=== PATIENT | female | born 1990 | race Caucasian/White ===

== ENCOUNTER 2021-08-23 09:50 | Emergency (ER) | payer OTHER, SELFPAY ==
[2021-08-23 10:06] VITALS: BP 122/73; PULSE 100; RESP 18; TEMP 36.8; O2SAT 96; BMI 25.0
[2021-08-23 10:41] LABS: Appearance Urine HAZY; Color Urine YELLOW; Glucose Urine UA NEG (NEG); Leukocyte Esterase Urine NEG (NEG); Nitrite Urine NEG (NEG); Specific Gravity - Urine 1.025 (1.005-1.025); Urine Blood NEG (NEG); Urine Ketones NEG (NEG); Urine Protein NEG (NEG-TRACE)
--- NOTE | 2021-08-23 11:06 | ED.FEMALEGU ---
HPI - Female Genitourinary General Chief complaint: Urogenital-Female Stated complaint: QUEST UTI Time Seen by Provider: 08/23/21 10:28 Source: patient Mode of arrival: ambulatory Limitations: no limitations History of Present Illness HPI Narrative: 30-year-old female is here today for complaints of vaginal discharge and odor. Patient reports that she had unprotected sex with her monogamous partner 1 week ago and her symptoms began 4 days ago. Patient denies any urinary frequency, urgency or burning. Denies any hematuria. Reports that the discharge is white and she reports of foul odor. Patient denies any pelvic pain. Denies any other symptoms. Denies any nausea or vomiting. Patient reports that she has IUD in place. MD elicited complaint: vaginal discharge and possible STD Related Data Previous Rx's Medication Instructions Recorded doxycycline hyclate 100 mg tablet 100 mg PO BID #14 tab 08/23/21 metronidazole 500 mg tablet 500 mg PO BID #14 tab 08/23/21 (Flagyl) Allergies Allergy/AdvReac Type Severity Reaction Status Date / Time No Known Allergies Allergy Verified 08/23/21 10:09 [No Known Allergies*] animals Allergy Unknown Unknown Uncoded 08/23/21 10:09 dust Allergy Unknown Unknown Uncoded 08/23/21 10:09 mold Allergy Unknown Unknown Uncoded 08/23/21 10:09 pollen Allergy Unknown Unknown Uncoded 08/23/21 10:09 Review of Systems Review of Systems: Constitutional : No Weight loss, No Fever, No Chills, No Night Sweats, No Fatigue, No Malaise ENT/Mouth : No Hearing loss, No Ear Pain, No Nasal Congestion, No Sinus Pain, No Hoarseness, No sore throat, No Rhinorrhea, No Swallowing Difficulty Eyes: No Eye Pain, No Swelling, No Redness, No Foreign Body, No Discharge, No Vision Changes Cardiovascular : No Chest Pain, No SOB, No Dyspnea on Exertion, No Orthopnea, No Edema, No Palpitations Respiratory : No Cough, No Sputum, No Wheezing, No Smoke Exposure, No Dyspnea Gastrointestinal : No Nausea, No Vomiting, No Diarrhea, No Constipation, No abdominal Pain, No Hematochezia, No Melena Genitourinary : no irregular bleeding, No Dysuria, No Urinary Frequency, No Hematuria, No Urinary Incontinence, No Urgency, No Flank Pain, No Urinary Flow Changes, No Hesitancy, vaginal odor Musculoskeletal : No joint pain, No Myalgias, No Joint Swelling Skin : No Skin Lesions, No rash Neuro : No Weakness, No Numbness, No Paresthesias, No Loss of Consciousness, No Dizziness, No Headache Yes all other systems are reviewed and are negative PMFSH Past Medical History Medical History (Updated 08/23/21 @ 12:14 by Marilin Saenz [facility]) No known health problems Social History Social History Advance Directives: No Advance Directives Information Provided: No Patient : No Physical Exam Vital Signs: Vital Signs: Last Vital Signs Temp 98.3 F 08/23/21 10:06 Pulse 100 08/23/21 10:06 Resp 18 08/23/21 10:06 BP 122/73 08/23/21 10:06 Pulse Ox 96 08/23/21 10:06 Body Mass Index 25.0 Const: General: healthy appearing, no acute distress and well developed Nutritional Appearance: well nourished Orientation/consciousness: patient oriented x3 HENMT: Head: Yes normal to inspection, Yes normocephalic and Yes atraumatic Neck: Neck: Yes normal visual inspection, Yes full ROM and Yes trachea midline Thyroid: Thyroid normal Resp: Effort & Inspection: normal respiratory effort Auscultation: clear to auscultation bilaterally Cardio: Rate: regular rate Rhythm: regular rhythm Heart sounds: S1 normal heart sound present and S2 normal heart sound present GI: Inspection: Yes normal to inspection and No distended Palpation (GI): No hepatosplenomegaly present Auscultation: normal bowel sounds : Other: No tenderness to pelvic region, patient refused vaginal exam General: Yes Bimanual renal exam normal bilaterally, Yes bladder normal to palpation and Yes no CVA tenderness External Female Exam: normal external appearance and other (Patient refused vaginal exam) Bimanual exam- vagina & uterus: bladder normal to palpation Back/Spine/Pelvis: Back: no CVA tenderness Skin: General skin exam: elasticity normal, turgor normal and dry skin Neuro: General: patient oriented x3 Psych: Appearance: grossly normal and well kempt Mental Status: mental status grossly normal Course Course Course Narrative: 30-year-old female is here today after having unprotected sex 1 week ago with her monogamous partner. She reports that symptoms started 4 days ago. Started having vaginal discharge white with foul odor. Patient denies any pain, no urinary frequency, burning, pain. Patient refused vaginal exam, however agreed to swab. Swab for Trichomonas, yeast, BV, gonorrhea and chlamydia. Will do urinalysis, test Reevaluation(s) Reevaluation #1: test negative will medicate patient for gonorrhea and chlamydia. Awaiting Trichomonas and yeast results Reevaluation #2: Trichomonas and yeast negative. Patient reports that she has history of BV in the past. I will treat her now with Flagyl. She will be sent home with Flagyl and doxycycline twice a day for 7 days. Patient was instructed to abstain from alcohol while she is taking Flagyl. She is aware that she will receive a phone call from us with results. She was instructed to return if her symptoms will get worse or if she experience any additional concerning symptoms. MDM - Female Genitourinary Lab Data Labs: Lab Results 08/23/21 08/23/21 Range/Units 10:31 10:31 Urine Color YELLOW Urine Appearance HAZY Urine pH 7.0 (5.0-8.0) Ur Specific [place] 1.025 (1.005-1.025) Urine Protein NEG (NEG-TRACE) MG/DL Urine Glucose (UA) NEG (NEG) MG/DL Urine Ketones NEG (NEG) MG/DL Urine Blood NEG (NEG) Urine Nitrite NEG (NEG) Ur Leukocyte Esterase NEG (NEG) Urine Test NEGATIVE (NEGATIVE) Discharge Plan Discharge Clinical Impression: Bacterial vaginosis, Vaginal discharge Patient Disposition: Home, Self-Care Instructions: Vaginal Discharge (ED) Additional Instructions: You were seen here today for complaining of vaginal discharge and pelvic discomfort. We tested to for yeast and Trichomonas which was negative. You received treatment for gonorrhea and chlamydia. You also will be receiving treatment for suspected bacterial vaginosis. Someone will call you in 48-72 hours if you test positive. Please follow-up with [facility] or [facility] at [address] [place] [address]. Phone number [phone]. Please follow-up with your primary care doctor in 2-3 days. You may return to emergency department if your symptoms will get worse or if you experience any additional concerning symptoms. Please finish all your antibiotics unless you are told otherwise by one of our providers Prescriptions: New doxycycline hyclate 100 mg tablet 100 mg PO BID Qty: 14 RF: 0 metronidazole [Flagyl] 500 mg tablet 500 mg PO BID Qty: 14 RF: 0 Interventions: ED Discharge Assessment Last Done: 08/23/21 12:34 Discharge Date/Time: 08/23/21 12:35
[2021-08-23 11:09] LABS: UPreg QC Valid YES; Urine Pregnancy NEGATIVE (NEGATIVE)
[2021-08-23] MEDS: Ondansetron ODT 4 MG TAB.RAPDIS TRANSLINGU (11:18)
[2021-08-23] MEDS: cefTRIAXone sodium 500 MG, Lidocaine HCl 1 % MPF 1 ML IM (11:30)
[2021-08-23] MEDS: metroNIDAZOLE 500 MG TABLET PO (12:12)
[2021-08-23 15:17] LABS: CT PCR NOT DETECTED (Not Detect.); NG PCR NOT DETECTED (Not Detect.)
[2021-08-25 09:53] LABS: BV Int Neg Control Negative (Negative); BV Int Pos Control Positive (Positive)
== END 2021-08-23 12:35 | disposition home or self-care (01) ==
PROVIDERS: Nurse Practitioner Family; Emergency Provider Emergency Medicine
DX: N76.0 Acute vaginitis (principal); Z79.899 Other long term (current) drug therapy; Z20.2 Contact with and (suspected) exposure to infections with a predominantly sexual mode of transmission
CPT/HCPCS: 36415; 81003; 81025; 87480; 87491; 87510; 87591; 87660; 96372; 99282; 99284; J0696

== ENCOUNTER 2021-10-01 13:30 | Emergency (ER) | payer OTHER, SELFPAY ==
--- NOTE | ~2021-10-01 | US_ITS ---
EXAMINATION: US PELVIS CLINICAL INFORMATION: 30-year-old female with history of vaginal bleeding for 3 weeks. COMPARISON: None TECHNIQUE: Ultrasound of the pelvis is performed using both transabdominal and transvaginal transducers. Transvaginal imaging is performed due to inadequate visualization transabdominally. FINDINGS: UTERUS: The anteflexed, anteverted uterus measures 7 x 3.9 x 5.3 cm (cervix to fundus x AP x transverse dimensions). The myometrial echotexture is normal. No evidence of leiomyoma. The endometrium, which has normal homogeneous echotexture, is 0.4 cm AP. No endometrial fluid or polyp. The echogenic contraceptive device is low in position, extending into the endocervical canal. ADNEXA: The ovaries have normal size and echotexture. No ovarian mass. The right ovary measures approximately 2 x 1.1 x 1.4 cm and left ovary 3.3 x 1.5 x 1.1 cm. Color Doppler images show presence of arterial and venous flow within each ovary. FREE FLUID: No pelvic free fluid. US/US pelvic and transvaginal IMPRESSION: * The contraceptive device is abnormally low in position, extending into the endocervical canal. * No evidence of uterine mass. The endometrium is normal. * The ovaries are normal.
[2021-10-01 13:41] VITALS: BP 130/64; PULSE 105; RESP 16; TEMP 36.7; O2SAT 96; BMI 25.7
[2021-10-01 14:47] LABS: Appearance Urine HAZY; Color Urine YELLOW; Glucose Urine UA NEG (NEG); Leukocyte Esterase Urine NEG (NEG); Nitrite Urine NEG (NEG); PH 5.5 (5.0-8.0); Specific Gravity - Urine >= 1.030 (1.005-1.025); UACC Culture Trigger NO; Urine Blood 3+ (NEG); Urine Ketones NEG (NEG); Urine Protein NEG (NEG-TRACE)
--- NOTE | 2021-10-01 14:47 | ED_ITS ---
HPI - Female Genitourinary General Chief complaint: Urogenital-Female Stated complaint: Vaginal pain/bleeding c section scar rash Time Seen by Provider: 10/01/21 14:22 Source: patient Mode of arrival: ambulatory Limitations: no limitations History of Present Illness HPI Narrative: 30-year-old female came in for evaluation for multiple symptoms. Patient was seen in the emergency department about 5 weeks ago for vaginal odor, patient tested positive for BV, patient claimed that she did not receive treatment for him, patient is here today for increase water, increase vaginal spotting for the past 3 weeks, patient had IUD year ago and concern about miss placement of the IUD. Patient also here today to check on the incision in her lower abdomen that is been red and having mild discharge. Related Data Previous Rx's Medication Instructions Recorded doxycycline hyclate 100 mg tablet 100 mg PO BID #14 tab 08/23/21 metronidazole 500 mg tablet 500 mg PO BID #14 tab 08/23/21 (Flagyl) metronidazole 500 mg tablet 500 mg PO BID #14 tab 10/01/21 nystatin 100,000 unit/gram topical 1 appl TOPICAL TID #30 g 10/01/21 powder Allergies Allergy/AdvReac Type Severity Reaction Status Date / Time No Known Allergies Allergy Verified 08/23/21 10:09 [No Known Allergies*] animals Allergy Unknown Unknown Uncoded 08/23/21 10:09 dust Allergy Unknown Unknown Uncoded 08/23/21 10:09 mold Allergy Unknown Unknown Uncoded 08/23/21 10:09 pollen Allergy Unknown Unknown Uncoded 08/23/21 10:09 Review of Systems Review of Systems: All other systems are reviewed and are negative Constitutional: Reports as per HPI and Reports no additional constitutional complaints Eyes: Reports as per HPI and Reports no additional eye complaints Reports system reviewed and no additional complaints, except as documented Cardiovascular: Reports as per HPI and Reports no additional cardiovascular complaints Respiratory: Reports as per HPI and Reports no additional respiratory complaints Gastrointestinal: Reports as per HPI and Reports no additional gastrointestinal complaints Genitourinary: Reports no additional female genitourinary complaints Musculoskeletal: Reports no additional musculoskeletal complaints Skin/Breast: Reports system reviewed and no additional complaints, except as docu Psychiatric: Reports no additional psychiatric complaints Endocrine: Reports no additional endocrine complaints Hematologic/Lymphatic: Reports no additional hematologic/lymphatic complaints Allergic/Immunologic: Reports no additional allergic/immunologic complaints Reports system reviewed and no additional complaints, except as documented and Reports Abnormal speech present [facility] Past Medical History Medical History No known health problems Social History Social History Advance Directives: No Advance Directives Information Provided: No Patient : No Physical Exam Vital Signs: Vital Signs: Last Vital Signs Temp 98.0 F 10/01/21 13:41 Pulse 105 H 10/01/21 13:41 Resp 16 10/01/21 13:41 BP 130/64 10/01/21 13:41 Pulse Ox 96 10/01/21 13:41 Body Mass Index 25.7 Vital signs have been reviewed as appeared to be correct. Blood pressure normal. Heart rate normal. Respiration rate normal. Temperature normal. Oxygen saturation normal. Appearance: Alert. Oriented X3. No acute distress. Head: Normal external exam. Normocephalic. Atraumatic. No Bryant signs noted. No raccoon eyes noted Eyes: PERRLA. EOMI. Conjunctiva and sclera normal. Eyelids normal. ENT: TM's Normal. Pharynx normal. Uvula midline. Moist mucous membranes. No trismus noted. No drooling noted. No muffled voice noted. Neck: Normal inspection. Neck supple. FROM. No adenopathy. Thyroid Normal. No meningeal signs. No neck mass noted. CVS: Normal heart rate and rhythm. Heart sound normal. No murmurs noted. Pulses normal throughout. Respiratory: No respiratory distress. Painless inspiration. Breath sounds normal. No wheezes/rales/rhonchi noted. Chest nontender. No accessory muscle u ruddy noted or decreased air movement noted. Abdomen: Soft and nontender. Bowel sounds normal in all 4 quadrants. No distention noted. No organomegaly noted. No visible injury noted. incision in the lower abdomen with beefy red, moist service with satellite lesion outside advancing border. Pelvic exam: Deferred for ultrasound. Back: No CVA tenderness. Full range of motion noted. Skin: Skin warm and dry. Normal skin color. Normal skin turgor. No rashes/lesions/lacerations noted. Extremities: No lower extremity edema. Extremities exhibit normal range of motion. Extremities nontender. Neuro: Oriented X 3. Cranial nerve exam: II-XII are grossly intact No motor deficit. No sensory deficit. Reflexes normal. Course Course Course Narrative: Assessment and plan. 30-year-old female came in for evaluation of vaginal odor, patient had a history of bacterial vaginosis, patient declined any risk for STDs recently patient tested negative for STDs. Start the patient on Flagyl time 1 week. Old scar with fungal infection will start the patient on meconazole. As reported on the ultrasound report that the IUD is in the cervix and it is lower than it should be, patient was offered to remove it but patient preferred to see OBGYN. MDM - Female Genitourinary Lab Data Attestation: I reviewed the patient's lab results. Labs: Lab Results 10/01/21 10/01/21 Range/Units 14:38 14:38 Urine Color YELLOW Urine Appearance HAZY Urine pH 5.5 (5.0-8.0) Ur Specific [place] >= 1.030 H (1.005-1.025) Urine Protein NEG (NEG-TRACE) MG/DL Urine Glucose (UA) NEG (NEG) MG/DL Urine Ketones NEG (NEG) MG/DL Urine Blood 3+ H (NEG) Urine Nitrite NEG (NEG) Ur Leukocyte Esterase NEG (NEG) Urine RBC 5-9 H (0) /HPF Urine WBC 0 (0-4) /HPF Ur Squamous Epith Cells 2+ /LPF Urine Bacteria TRACE /LPF Urine Test NEGATIVE (NEGATIVE) Imaging Data Pelvic ultrasound: Radiologist's impression: ? The contraceptive device is abnormally low in position, extending into the endocervical canal. *? No evidence of uterine mass. The endometrium is normal. *? The ovaries are normal. Discharge Plan Discharge Clinical Impression: Bacterial vaginosis, Marii infection of flexural skin, IUD complication Patient Disposition: Home, Self-Care Instructions: Bacterial Vaginosis (ED), Skin Yeast Infection (ED) Prescriptions: New metronidazole 500 mg tablet 500 mg PO BID Qty: 14 RF: 0 nystatin 100,000 unit/gram powder 1 appl topical TID Qty: 30 RF: 0 No Action doxycycline hyclate 100 mg tablet 100 mg PO BID Qty: 14 RF: 0 metronidazole [Flagyl] 500 mg tablet 500 mg PO BID Qty: 14 RF: 0 Referrals: Jack Schultz MD [Physician] - 2 days
[2021-10-01 14:49] LABS: UPreg QC Valid YES; Urine Pregnancy NEGATIVE (NEGATIVE)
[2021-10-01 14:55] LABS: Bacteria Urine TRACE /LPF; Squamous Epithelial Cell Urine 2+ /LPF; WBC Urine 0 /HPF (0-4)
== END 2021-10-01 16:25 | disposition home or self-care (01) ==
PROVIDERS: Emergency Provider Emergency Medicine
DX: B37.2 Candidiasis of skin and nail (principal); N76.0 Acute vaginitis; T83.89XA Other specified complication of genitourinary prosthetic devices, implants and grafts, initial encounter
CPT/HCPCS: 76830; 76856; 81001; 81025; 99284

== ENCOUNTER 2022-06-15 13:08 | Emergency (ER) | payer OTHER, SELFPAY ==
--- NOTE | ~2022-06-15 | US_ITS ---
EXAMINATION: ULTRASOUND CLINICAL INFORMATION: 6 weeks with vaginal bleeding COMPARISON: None TECHNIQUE: Transabdominal ultrasound was performed. FINDINGS: A gestational sac is present within the uterus with a yolk sac and pole seen. A normal heartbeat of 142 bpm was noted. The crown-rump length was 1.02 cm which would correspond to a gestational age of 7 weeks 1 day with an KAYLA of 01/31/2023. Based upon the patient's LMP of 04/26/2022, this is identical. The right ovary measures 2.7 x 1.8 x 2.2 cm which includes a corpus luteum 1.1 x 1.2 x 1.6 cm cyst. Left ovary measures 2.1 x 1.5 x 2.0 cm and appears normal. No free fluid is present in the cul-de-sac. US/US OB limited IMPRESSION: Single live uterine mean gestational age best estimated at 7 weeks 1 day with an KAYLA of 01/31/2023
[2022-06-15 13:20] VITALS: BP 126/70; PULSE 104; RESP 18; TEMP 36.7; O2SAT 100; BMI 27.4
[2022-06-15 13:43] LABS: MANUAL DIFF FLAG NO
[2022-06-15 13:45] LABS: Basophils Percent Auto 0.1 % (0-2); Eosinophils Absolute Auto 0.3 X10*3/uL (0.0-0.4); Eosinophils Percent Auto 2.6 % (0-4); Hematocrit 39.7 % (37.0-47.0); Hemoglobin 13.8 g/dl (12.0-16.0); Imm Gran Abs Auto 0.05 X10*3/uL (0.00-0.03); Imm Gran Pct Auto 0.5 % (0.0-0.4); Lymphocytes Absolute Auto 1.7 X10*3/uL (1.2-4.9); Lymphocytes Percent Auto 16.6 % (20-40); Mean Corpuscular HGB Conc 34.8 g/dl (31.0-35.0); Mean Corpuscular Hemoglobin 30.9 pg (27.0-33.0); Mean Platelet Volume 11.5 fL (9.4-12.3); Monocytes Absolute Auto 0.8 X10*3/uL (0.1-1.2); Monocytes Percent Auto 7.7 % (2-11); Neutrophils Absolute Auto 7.2 x10*3/uL (2.0-8.3); Neutrophils Percent Auto 72.5 % (45-73); Platelet Count 214 X10*3/uL (160-400); Red Blood Count 4.46 X10*6/uL (4.20-5.50); Red Cell Distribution Width 12.2 % (11.0-16.0)
[2022-06-15 13:58] LABS: UPreg QC Valid YES; Urine Pregnancy POSITIVE (NEGATIVE)
[2022-06-15 13:59] LABS: Appearance Urine CLOUDY; Color Urine YELLOW; Glucose Urine UA NEG (NEG); Leukocyte Esterase Urine NEG (NEG); Nitrite Urine NEG (NEG); PH 8.5 (5.0-8.0); UACC Culture Trigger NO; Urine Blood 3+ (NEG); Urine Ketones NEG (NEG); Urine Protein NEG (NEG-TRACE)
[2022-06-15 14:02] LABS: Alanine Aminotransferase 12 U/L (0-31); Albumin Level 4.4 g/dL (3.5-5.0); Alkaline Phosphatase 47 U/L (39-117); Anion Gap 10 (12-20); Aspartate Amino Transferase 13 U/L (5-31); Bilirubin Total 0.5 mg/dL (0.0-1.0); Blood Urea Nitrogen 6 mg/dL (9-16); Calcium 8.8 mg/dL (8.4-10.2); Carbon Dioxide 23 mmol/L (22-29); Chloride 108 mmol/L (96-108); Estimated Glomerular Filt Rate > 60; Glucose Random 95 mg/dL (60-115); Potassium 3.9 mmol/L (3.3-5.1); Sodium 137 mmol/L (135-145); Total Protein 6.7 g/dL (6.5-8.0)
[2022-06-15 14:10] LABS: Amorphous Sediment Urine 4+ /LPF; Squamous Epithelial Cell Urine TRACE /LPF
[2022-06-15 14:11] LABS: WBC Urine 0 /HPF (0-4)
[2022-06-15 14:12] LABS: Bacteria Urine TRACE /LPF
--- NOTE | 2022-06-15 17:04 | ED.GENADULT ---
HPI - General Adult General Chief complaint: Vaginal Bleeding Stated complaint: / Vaginal bleeding Time Seen by Provider: 06/15/22 16:50 Source: patient Mode of arrival: ambulatory Limitations: no limitations History of Present Illness HPI narrative: 31-year-old female LMP is about 6-8 weeks ago patient noticed to have vaginal bleeding while she was at work, no abdominal pain or uterine contractions. No nausea, no vomiting, no diarrhea, no abdominal trauma. No chest pain or shortness of breath or feeling dizziness. Related Data Previous Rx's Medication Instructions Recorded doxycycline hyclate 100 mg tablet 100 mg PO BID #14 tabs 08/23/21 metronidazole 500 mg tablet 500 mg PO BID #14 tabs 08/23/21 (Flagyl) metronidazole 500 mg tablet 500 mg PO BID #14 tabs 10/01/21 nystatin 100,000 unit/gram topical 1 appl topical TID #30 grams 10/01/21 powder Allergies Allergy/AdvReac Type Severity Reaction Status Date / Time No Known Allergies Allergy Verified 08/23/21 10:09 [No Known Allergies*] animals Allergy Unknown Unknown Uncoded 08/23/21 10:09 dust Allergy Unknown Unknown Uncoded 08/23/21 10:09 mold Allergy Unknown Unknown Uncoded 08/23/21 10:09 pollen Allergy Unknown Unknown Uncoded 08/23/21 10:09 Review of Systems Review of Systems: All other systems are reviewed and are negative Constitutional: Reports as per HPI and Reports no additional constitutional complaints Eyes: Reports as per HPI and Reports no additional eye complaints Reports system reviewed and no additional complaints, except as documented Cardiovascular: Reports as per HPI and Reports no additional cardiovascular complaints Respiratory: Reports as per HPI and Reports no additional respiratory complaints Gastrointestinal: Reports as per HPI and Reports no additional gastrointestinal complaints Genitourinary: Reports no additional female genitourinary complaints Musculoskeletal: Reports no additional musculoskeletal complaints Skin/Breast: Reports system reviewed and no additional complaints, except as docu Psychiatric: Reports no additional psychiatric complaints Endocrine: Reports no additional endocrine complaints Hematologic/Lymphatic: Reports no additional hematologic/lymphatic complaints Allergic/Immunologic: Reports no additional allergic/immunologic complaints Reports system reviewed and no additional complaints, except as documented and Reports Abnormal speech present PMFSH Past Medical History Medical History No known health problems Social History Social History Advance Directives: No Advance Directives Information Provided: No Physical Exam ED Vital Signs: Vital Signs - 24 hr 06/15/22 13:20 Temperature 98.1 F Pulse Rate 104 H Respiratory Rate 18 Blood Pressure 126/70 Pulse Oximetry 100 Oxygen Delivery Method Room Air BMI result Body Mass Index 27.4 Vital signs have been reviewed as appeared to be correct. Blood pressure normal. Heart rate normal. Respiration rate normal. Temperature normal. Oxygen saturation normal. Appearance: Alert. Oriented X3. No acute distress. Head: Normal external exam. Normocephalic. Atraumatic. No Bryant signs noted. No raccoon eyes noted Eyes: PERRLA. EOMI. Conjunctiva and sclera normal. Eyelids normal. ENT: TM's Normal. Pharynx normal. Uvula midline. Moist mucous membranes. No trismus noted. No drooling noted. No muffled voice noted. Neck: Normal inspection. Neck supple. FROM. No adenopathy. Thyroid Normal. No meningeal signs. No neck mass noted. CVS: Normal heart rate and rhythm. Heart sound normal. No murmurs noted. Pulses normal throughout. Respiratory: No respiratory distress. Painless inspiration. Breath sounds normal. No wheezes/rales/rhonchi noted. Chest nontender. No accessory muscle usage noted or decreased air movement noted. Abdomen: Soft and nontender. Bowel sounds normal in all 4 quadrants. No distention noted. No organomegaly noted. No visible injury noted. Pelvic exam: Normal inspection, also is closed, no blood in the vault. Back: No CVA tenderness. Full range of motion noted. Skin: Skin warm and dry. Normal skin color. Normal skin turgor. No rashes/lesions/lacerations noted. Extremities: No lower extremity edema. Extremities exhibit normal range of motion. Extremities nontender. Neuro: Oriented X 3. Cranial nerve exam: II-XII are grossly intact No motor deficit. No sensory deficit. Reflexes normal. Course Course Course Narrative: Assessment and plan. 7 weeks came in with vaginal spotting with no active bleeding. Ultrasound showed 1 IUP will discharge with bedrest and avoid heavy lifting. Medical Decision Making Lab Data Lab results reviewed: Yes I reviewed the patient's lab results. Result diagrams: 06/15/22 13:33 06/15/22 13:33 Labs: Lab Results 06/15/22 06/15/22 06/15/22 Range/Units 13:33 13:33 13:33 WBC 10.0 (4.8-10.8) X10*3/uL RBC 4.46 (4.20-5.50) X10*6/uL Hgb 13.8 (12.0-16.0) g/dl Hct 39.7 (37.0-47.0) % MCV 89.0 (80.0-98.0) fL MCH 30.9 (27.0-33.0) pg MCHC 34.8 (31.0-35.0) g/dl RDW 12.2 (11.0-16.0) % Plt Count 214 (160-400) X10*3/uL MPV 11.5 (9.4-12.3) fL Immature Gran % (Auto) 0.5 H (0.0-0.4) % Neut % (Auto) 72.5 (45-73) % Lymph % (Auto) 16.6 L (20-40) % [place] % (Auto) 7.7 (2-11) % Eos % (Auto) 2.6 (0-4) % Baso % (Auto) 0.1 (0-2) % Lymph # (Auto) 1.7 (1.2-4.9) X10*3/uL [place] # (Auto) 0.8 (0.1-1.2) X10*3/uL Eos # (Auto) 0.3 (0.0-0.4) X10*3/uL Baso # (Auto) 0.0 (0.0-0.2) X10*3/uL Abs Immat Gran (auto) 0.05 H (0.00-0.03) X10*3/uL Absolute Neuts (auto) 7.2 (2.0-8.3) x10*3/uL Absolute Nucleated RBC 0.000 (0.0-0.012) X10*3/uL Nucleated RBC % (auto) 0.0 (0.0-0.2) /100WBC Sodium 137 (135-145) mmol/L Potassium 3.9 (3.3-5.1) mmol/L Chloride 108 (96-108) mmol/L Carbon Dioxide 23 (22-29) mmol/L Anion Gap 10 L (12-20) BUN 6 L (9-16) mg/dL Creatinine 0.67 (0.5-1.4) mg/dL Estim Creat Clear Calc 121.0 Estimated GFR > 60 Random Glucose 95 (60-115) mg/dL Calcium 8.8 (8.4-10.2) mg/dL Total Bilirubin 0.5 (0.0-1.0) mg/dL AST 13 (5-31) U/L ALT 12 (0-31) U/L Alkaline Phosphatase 47 (39-117) U/L Total Protein 6.7 (6.5-8.0) g/dL Albumin 4.4 (3.5-5.0) g/dL Beta HCG, Quant 117888 mIU/mL Urine Color Urine Appearance Urine pH (5.0-8.0) Ur Specific [place] (1.005-1.025) Urine Protein (NEG-TRACE) MG/DL Urine Glucose (UA) (NEG) MG/DL Urine Ketones (NEG) MG/DL Urine Blood (NEG) Urine Nitrite (NEG) Ur Leukocyte Esterase (NEG) Urine RBC (0) /HPF Urine WBC (0-4) /HPF Ur Squamous Epith Cells /LPF Amorphous Sediment /LPF Urine Bacteria /LPF Urine Test (NEGATIVE) Blood Type A Positive 06/15/22 06/15/22 Range/Units 13:33 13:33 WBC (4.8-10.8) X10*3/uL RBC (4.20-5.50) X10*6/uL Hgb (12.0-16.0) g/dl Hct (37.0-47.0) % MCV (80.0-98.0) fL MCH (27.0-33.0) pg MCHC (31.0-35.0) g/dl RDW (11.0-16.0) % Plt Count (160-400) X10*3/uL MPV (9.4-12.3) fL Immature Gran % (Auto) (0.0-0.4) % Neut % (Auto) (45-73) % Lymph % (Auto) (20-40) % [place] % (Auto) (2-11) % Eos % (Auto) (0-4) % Baso % (Auto) (0-2) % Lymph # (Auto) (1.2-4.9) X10*3/uL [place] # (Auto) (0.1-1.2) X10*3/uL Eos # (Auto) (0.0-0.4) X10*3/uL Baso # (Auto) (0.0-0.2) X10*3/uL Abs Immat Gran (auto) (0.00-0.03) X10*3/uL Absolute Neuts (auto) (2.0-8.3) x10*3/uL Absolute Nucleated RBC (0.0-0.012) X10*3/uL Nucleated RBC % (auto) (0.0-0.2) /100WBC Sodium (135-145) mmol/L Potassium (3.3-5.1) mmol/L Chloride (96-108) mmol/L Carbon Dioxide (22-29) mmol/L Anion Gap (12-20) BUN (9-16) mg/dL Creatinine (0.5-1.4) mg/dL Estim Creat Clear Calc Estimated GFR Random Glucose (60-115) mg/dL Calcium (8.4-10.2) mg/dL Total Bilirubin (0.0-1.0) mg/dL AST (5-31) U/L ALT (0-31) U/L Alkaline Phosphatase (39-117) U/L Total Protein (6.5-8.0) g/dL Albumin (3.5-5.0) g/dL Beta HCG, Quant mIU/mL Urine Color YELLOW Urine Appearance CLOUDY Urine pH 8.5 H (5.0-8.0) Ur Specific [place] 1.020 (1.005-1.025) Urine Protein NEG (NEG-TRACE) MG/DL Urine Glucose (UA) NEG (NEG) MG/DL Urine Ketones NEG (NEG) MG/DL Urine Blood 3+ H (NEG) Urine Nitrite NEG (NEG) Ur Leukocyte Esterase NEG (NEG) Urine RBC 10-14 H (0) /HPF Urine WBC 0 (0-4) /HPF Ur Squamous Epith Cells TRACE /LPF Amorphous Sediment 4+ /LPF Urine Bacteria TRACE /LPF Urine Test POSITIVE H (NEGATIVE) Blood Type Imaging Data Pelvic ultrasound: Attestation: I personally reviewed and interpreted this imaging study as follows: Radiologist's impression: Single live uterine mean gestational age best estimated at 7 weeks 1 day with an KAYLA of 01/31/2023? Discharge Plan Discharge Clinical Impression: Threatened Patient Disposition: Home, Self-Care Instructions: Threatened Miscarriage (ED) Additional Instructions: No heavy lifting, no pushing, no prolonged standing, needs bed rest, no sexual intercourse. Return to the ED if heavy bleeding or abdominal pain. Prescriptions: No Action doxycycline hyclate 100 mg tablet 100 mg PO BID Qty: 14 0RF metronidazole [Flagyl] 500 mg tablet 500 mg PO BID Qty: 14 0RF metronidazole 500 mg tablet 500 mg PO BID Qty: 14 0RF nystatin 100,000 unit/gram powder 1 appl topical TID Qty: 30 0RF Referrals: Physician,None [Primary Care Provider] - Stand Alone Forms: Work/School Release
== END 2022-06-15 19:14 | disposition home or self-care (01) ==
PROVIDERS: Emergency Provider Emergency Medicine
DX: O20.9 Hemorrhage in early pregnancy, unspecified (principal); Z3A.08 8 weeks gestation of pregnancy; Z79.899 Other long term (current) drug therapy
CPT/HCPCS: 36415; 76815; 80053; 81001; 81003; 81025; 84702; 85025; 86900; 86901; 99282; 99284

== ENCOUNTER 2022-08-26 13:20 | Emergency (ER) | payer OTHER, SELFPAY ==
[2022-08-26 14:30] VITALS: BP 113/87; PULSE 95; RESP 16; TEMP 36.6; O2SAT 95; BMI 27.4
[2022-08-26 15:22] LABS: Influenza A PCR NEGATIVE (Negative); Influenza B PCR NEGATIVE (Negative); Resp Syncy Virus RNA Qual PCR NEGATIVE (Negative); SARS COV2 PCR INHOUSE NEGATIVE (Negative)
--- NOTE | 2022-08-26 19:27 | ED_ITS ---
HPI - Asthma General Chief Complaint: Asthma Stated Complaint: asthma diff breathing Time Seen by Provider: 08/26/22 18:40 Source: patient Mode of arrival: ambulatory Limitations: no limitations History of Present Illness HPI Narrative: Patient presents emergency department for evaluation of asthma exacerbation. She states that over the past month she has been having intermittent difficulty breathing shortness of breath and wheezing. States that it is not relieved with her albuterol inhaler or albuterol nebulizers. States that she was seen at urgent care about 2 weeks ago, but states she was not prescribed prednisone at that time. She is currently 17 weeks , last menstrual period 04/24/22 tried to with estimated due date 01/29/2023. denies fevers, chills, chest pain, palpitations, nausea, vomiting, abdominal pain, numbness or tingling of her extremities. Denies known sick contacts. Has had prior COVID- 19 testing which is negative. Related Data Previous Rx's Medication Instructions Recorded doxycycline hyclate 100 mg tablet 100 mg PO BID #14 tabs 08/23/21 metronidazole 500 mg tablet 500 mg PO BID #14 tabs 08/23/21 (Flagyl) metronidazole 500 mg tablet 500 mg PO BID #14 tabs 10/01/21 nystatin 100,000 unit/gram topical 1 appl topical TID #30 grams 10/01/21 powder albuterol sulfate 2.5 mg/3 mL 2.5 mg (3 mL) inhalation Q4-6H PRN 08/26/22 (0.083 %) solution for nebulization shortness of breath or wheezing #180 mL albuterol sulfate 90 mcg/actuation 2 inh inhalation Q4-6H PRN 08/26/22 breath activated powder inhaler shortness of breath or wheezing #1 ea prednisone 20 mg tablet 40 mg PO DAILY 5 days #10 tabs 08/26/22 Allergies Allergy/AdvReac Type Severity Reaction Status Date / Time No Known Allergies Allergy Verified 08/23/21 10:09 [No Known Allergies*] animals Allergy Unknown Unknown Uncoded 08/23/21 10:09 dust Allergy Unknown Unknown Uncoded 08/23/21 10:09 mold Allergy Unknown Unknown Uncoded 08/23/21 10:09 pollen Allergy Unknown Unknown Uncoded 08/23/21 10:09 Review of Systems Review of Systems: Constitutional : No Fever, No Chills ENT/Mouth : No Hoarseness, No sore throat, No Rhinorrhea Eyes: No Redness, No Discharge, No Vision Changes Cardiovascular : No Chest Pain, positive SOB, positive Dyspnea on Exertion, No Edema Respiratory : positive Cough, No Sputum, positive Wheezing, Gastrointestinal : No Nausea, No Vomiting, No Diarrhea, No abdominal Pain Genitourinary : No Dysuria, No Hematuria Musculoskeletal : No joint pain, No Myalgias Skin : No rash Neuro : No Weakness, No Numbness, No Headache Psych : No anxiety, depression Heme/Lymph: No Bruising, No Bleeding Endocrine : No Polyuria, No Polydipsia Yes all other systems are reviewed and are negative [facility] Past Medical History Attestation statement: The following information was validated with the patient. Source: old records reviewed Medical History (Updated 08/26/22 @ 19:33 by Mary Ford CNP) Asthma No known health problems Social History Social History Advance Directives: No Advance Directives Information Provided: No Physical Exam Vital Signs: Vital Signs: Last Vital Signs Temp 97.8 F 08/26/22 14:30 Pulse 95 08/26/22 14:30 Resp 16 08/26/22 14:30 BP 113/87 08/26/22 14:30 Pulse Ox 95 08/26/22 14:30 O2 Del Method 08/26/22 14:30 BMI result Body Mass Index 27.4 Appearance: Alert.?Oriented to person, place and time. No acute distress.?Normal affect. Eyes: Pupils equal, round and reactive to light.? ENT: Pharynx normal.?? Neck: Normal inspection.? Neck supple.?? CVS: Heart sounds normal. Normal heart rate and rhythm.? Pulses normal.?? Respiratory: No respiratory distress.? Lung sounds expiratory wheezing throughout. Abdomen: Soft and non-tender. Normoactive bowel sounds. .?? Skin: Skin warm and dry.? Normal skin color.? Extremities: No lower extremity edema.? No calf ttp? Neuro: Moves all extremities spontaneously. Sensation intact bilaterally.No focal neuro deficits. Ambulates with normal steady gait. Course Course Course Narrative: Patient is a 31-year-old female G7 A3 L3, currently with estimated due date 01/29/2023. Presents emergency department concerns for asthma exacerbation unrelieved with home nebulizers and albuterol inhaler. She is in no apparent distress. Able to speak clear full sentences. She does have expiratory wheezing upon auscultation. She is not tachycardic, afebrile, without hypoxia or tachypnea. At this time low suspicion for pneumonia, PERC negative unlikely to be pulmonary embolism. COVID- 19, influenza, and RSV testing are negative. Discussed with patient plan of care for discharge home, provided with a new prescription for prednisone for 5 days, continued use of nebulized albuterol inhaler as needed. Reviewed worrisome signs and symptoms that she should return back to emergency department for. Advised to follow-up with her primary care provider within 2-3 days. Patient verbalized understanding, she was discharged home in stable condition. [facility] - Asthma Medical Records Attestation: I reviewed the patient's medical records. Lab Data Attestation: I reviewed the patient's lab results. Labs: Lab Results 08/26/22 Range/Units 14:35 Influenza Type A (PCR) NEGATIVE (Negative) Influenza Type B (PCR) NEGATIVE (Negative) RSV RNA Qual (PCR) NEGATIVE (Negative) SARS-CoV-2 RNA (RT-PCR) NEGATIVE (Negative) Discharge Plan Discharge Clinical Impression: Asthma with acute exacerbation Patient Disposition: Home, Self-Care Instructions: Asthma (ED) Additional Instructions: Continue using your albuterol inhaler nebulizer for shortness of breath and wheezing. You have been given a new prescription for prednisone to take daily for 5 days, be certain to take this with food to prevent stomach upset. Return to the emergency department with any new or worsening symptoms or concerns. Please follow-up with your primary care provider within 3 days. Prescriptions: New albuterol sulfate 90 mcg/actuation aerosol powdr breath activated 2 inh inhalation Q4-6H PRN (Reason: shortness of breath or wheezing) Qty: 1 0RF albuterol sulfate 2.5 mg /3 mL (0.083 %) solution for nebulization 2.5 mg inhalation Q4-6H PRN (Reason: shortness of breath or wheezing) Qty: 180 0RF prednisone 20 mg tablet 40 mg PO DAILY 5 Days Qty: 10 0RF No Action doxycycline hyclate 100 mg tablet 100 mg PO BID Qty: 14 0RF metronidazole [Flagyl] 500 mg tablet 500 mg PO BID Qty: 14 0RF metronidazole 500 mg tablet 500 mg PO BID Qty: 14 0RF nystatin 100,000 unit/gram powder 1 appl topical TID Qty: 30 0RF
== END 2022-08-26 19:43 | disposition home or self-care (01) ==
PROVIDERS: Emergency Provider Emergency Medicine
DX: J45.901 Unspecified asthma with (acute) exacerbation (principal); Z20.822 Contact with and (suspected) exposure to COVID-19
CPT/HCPCS: 0241U; 99282; 99283

== ENCOUNTER 2024-05-31 23:05 | Emergency (ER) | payer OTHER, SELFPAY ==
[2024-05-31 23:25] VITALS: BP 123/85; PULSE 107; RESP 16; TEMP 37; O2SAT 97; BMI 29.9
[2024-06-01 00:29] LABS: Appearance Urine Turbid; Color Urine Yellow; Glucose Urine UA Negative (Negative); Leukocyte Esterase Urine Negative (Negative); Nitrite Urine Negative (Negative); PH 5.5 (5.0-9.0); Specific Gravity - Urine >= 1.030 (1.005-1.025); UMIC TRIGGER UACC YES; Urine Blood Large (3+) (Negative); Urine Ketones Negative (Negative); Urine Protein Trace mg/dL (Neg-Trace)
[2024-06-01 00:32] LABS: UPreg QC Valid YES; Urine Pregnancy NEGATIVE (NEGATIVE)
[2024-06-01 00:35] LABS: Bacteria Urine 4+ (None Seen); Hyaline Casts Urine 0-2 /LPF (0-2); RBC Urine 0-2 /HPF (0-2); Squamous Epithelial Cell Urine >20 /HPF (0-2); WBC Urine 0-5 /HPF (0-5)
--- NOTE | 2024-06-01 00:48 | ED.GENADULT ---
HPI - General Adult General Chief complaint: Psychiatric Symptoms Stated complaint: psychiatric eval Time Seen by Provider: 06/01/24 00:14 Source: patient, RN notes reviewed and old records reviewed Mode of arrival: ambulatory Limitations: no limitations History of Present Illness ED Provider: Gilbert ZULETA narrative: 33-year-old female with past medical history significant for asthma, depression, anxiety presents for evaluation of depression anxiety. Patient reports that she has had increased stressors with the last few weeks to months in life. She states that she her mother recently She states that her brother and sister then move in with her as they were living with the mother The patient's son was recently diagnosed with autism The patient also mentions increased stressors at work She reports that she is feeling overwhelmed and anxious with some degree of depression regarding his situation She has not suicidal. 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 Related Data Previous Rx's ?Medication ?Instructions ?Recorded doxycycline hyclate 100 mg tablet 100 mg PO BID #14 tabs 08/23/21 metronidazole 500 mg tablet 500 mg PO BID #14 tabs 08/23/21 (Flagyl) metronidazole 500 mg tablet 500 mg PO BID #14 tabs 10/01/21 nystatin 100,000 unit/gram topical 1 appl topical TID #30 grams 10/01/21 powder albuterol sulfate 2.5 mg/3 mL 2.5 mg (3 mL) inhalation Q4-6H PRN 08/26/22 (0.083 %) solution for nebulization shortness of breath or wheezing #180 mL albuterol sulfate 90 mcg/actuation 2 puff inhalation Q4-6H PRN 08/26/22 aerosol inhaler shortness of breath or wheezing 30 days #6.7 grams albuterol sulfate 90 mcg/actuation 2 inh inhalation Q4-6H PRN 08/26/22 breath activated powder inhaler shortness of breath or wheezing #1 ea prednisone 20 mg tablet 40 mg (2 x 20 mg) PO DAILY 5 days 08/26/22 #10 tabs Allergies Allergy/AdvReac Type Severity Reaction Status Date / Time No Known Allergies Allergy Verified 08/23/21 10:09 [No Known Allergies*] animals Allergy Unknown Unknown Uncoded 05/31/24 23:29 dust Allergy Unknown Unknown Uncoded 05/31/24 23:29 mold Allergy Unknown Unknown Uncoded 05/31/24 23:29 pollen Allergy Unknown Unknown Uncoded 05/31/24 23:29 Review of Systems Constitutional: Constitutional: Denies body ache(s), Denies chills and Denies fever(s) Eyes: Eyes: Denies blurry vision ENT: Denies vertigo and Denies dizziness Cardiovascular: Cardiovascular: Denies chest pain and Denies dyspnea Respiratory: Respiratory: Denies cough and Denies dyspnea Gastrointestinal: Gastrointestinal: Denies abdominal pain, Denies nausea and Denies vomiting Musculoskeletal: Musculoskeletal: Denies back pain Neurologic: Denies vertigo and Denies dizziness Psychiatric: Psychiatric: Reports anxiety, Reports depression, Denies panic attacks, Denies paranoia and Denies suicidal ideation [facility] Past Medical History Medical History (Updated 06/01/24 @ 00:52 by Jaime Hunt) Asthma No known health problems Social History Social History Smoked in Last 30 Days: No Use of substances other than those prescribed or required for medical reasons: No Advance Directives: No Advance Directives Information Provided: Yes Do you have a plan to hurt others: No Plan Patient : No Physical Exam ED Vital Signs: Vital Signs - 24 hr 05/31/24 23:25 Temperature 98.6 F Pulse Rate 107 H Respiratory Rate 16 Blood Pressure 123/85 Pulse Oximetry 97 Oxygen Delivery Method Room Air BMI result Body Mass Index 29.9 Const General: healthy appearing, comfortable, no acute distress, alert and awake Nutritional Appearance: well nourished Orientation/consciousness: patient oriented x3 HENMT Head: Yes normocephalic and Yes atraumatic Eyes Eyelids: Yes eyelids normal Conjunctivae: conjunctivae normal Sclerae: sclerae normal Corneas: corneas normal Pupils: Equal, round and reactive pupils present EOM: EOMs intact bilaterally Neck Neck: Yes full ROM Resp Effort & Inspection: normal respiratory effort, able to speak in complete sentences and not labored Skin General skin exam: elasticity normal Neuro General: patient oriented x3 Cranial nerves: Yes Equal, round and reactive pupils present and Yes Bilaterally intact EOM present Cognition (Neuro): normal cognition Extrem Other: Moving all extremities well without any obvious deformities Course Course Course Narrative: Physician observation continued. VS stable, no acute events overnight pending CARE team input. SHEREEN 06/01/24. Reevaluation(s) Reevaluation #1: Luna Soto PA-C: Patient met with CARE team who agreed to discharge. Observation care revealed the the patient does not meet medical necessity for hospitalization. Final disposition discussed with the patient who verbalized understanding and agreement. Patient completed observation care at 1030, total time spent in observation care was 7 hours and 32 minutes. Medications Administered Generic Name Dose Route Start Last Admin Trade Name Freq PRN Reason Stop Dose Admin Albuterol Sulfate 2 puff 06/01/24 08:49 06/01/24 09:05 Albuterol Sulfate 90 Mcg 8 Gm Inhaler INHALE 2 puff Q4H PRN Administration shortness of breath or wheezing Discontinued Medications Generic Name Dose Route Start Last Admin Trade Name Freq PRN Reason Stop Dose Admin Lorazepam 1 mg 06/01/24 00:44 06/01/24 01:00 Lorazepam 1 Mg Tablet PO 06/01/24 00:45 1 mg ONCE ONE Administration Medical Decision Making Medical Decision Making MDM Narrative: 33-year-old female presents for evaluation of depression and anxiety. She has not suicidal. She has no somatic complaints. Her urine did have blood and 4+ bacteria but also greater than 20 epithelial cells. She reports that she is on her menstrual cycle and has no burning with urination or urinary frequency. This is likely a contaminant and we will hold antibiotics at this time. The patient is medically cleared for care team evaluation Differential Diagnosis Differential Diagnoses: The differential diagnosis associated with the presentation includes Anxiety Depression Substance abuse UTI Lab Data 06/01/24 01:23 06/01/24 01:23 Labs: Lab Results 06/01/24 06/01/24 Range/Units 00:16 01:23 WBC 8.5 (4.8-10.8) X10*3/uL RBC 4.21 (4.20-5.50) X10*6/uL Hgb 13.3 (12.0-16.0) g/dl Hct 38.0 (37.0-47.0) % MCV 90.3 (80.0-98.0) fL MCH 31.6 (27.0-33.0) pg MCHC 35.0 (31.0-35.0) g/dl RDW 13.2 (11.0-16.0) % Plt Count 184 (160-400) X10*3/uL MPV 11.9 (9.4-12.3) fL Immature Gran % (Auto) 0.2 (0.0-0.4) % Neut % (Auto) 57.7 (45-73) % Lymph % (Auto) 28.8 (20-40) % Brooke % (Auto) 8.2 (2-11) % Eos % (Auto) 4.9 H (0-4) % Baso % (Auto) 0.2 (0-2) % Lymph # (Auto) 2.5 (1.2-4.9) X10*3/uL Brooke # (Auto) 0.7 (0.1-1.2) X10*3/uL Eos # (Auto) 0.4 (0.0-0.4) X10*3/uL Baso # (Auto) 0.0 (0.0-0.2) X10*3/uL Abs Immat Gran (auto) 0.02 (0.00-0.03) X10*3/uL Absolute Neuts (auto) 4.9 (2.0-8.3) x10*3/uL Absolute Nucleated RBC 0.000 (0.0-0.012) X10*3/uL Nucleated RBC % (auto) 0.0 (0.0-0.2) /100WBC Sodium 141 (135-145) mmol/L Potassium 3.6 (3.3-5.1) mmol/L Chloride 108 (96-108) mmol/L Carbon Dioxide 24 (22-29) mmol/L Anion Gap 13 (12-20) BUN 14 (9-16) mg/dL Creatinine 0.73 (0.5-1.4) mg/dL Estim Creat Clear Calc 117.7 Estimated GFR > 60 Random Glucose 128 H (60-115) mg/dL Calcium 8.5 (8.4-10.2) mg/dL Total Bilirubin 0.2 (0.0-1.0) mg/dL AST 11 (5-31) U/L ALT 11 (0-31) U/L Alkaline Phosphatase 50 (39-117) U/L Total Protein 5.8 L (6.5-8.0) g/dL Albumin 3.7 (3.5-5.0) g/dL Urine Color Yellow Urine Appearance Turbid Urine pH 5.5 (5.0-9.0) Ur Specific [place] >= 1.030 H (1.005-1.025) Urine Protein Trace (Neg-Trace) mg/dL Urine Glucose (UA) Negative (Negative) mg/dL Urine Ketones Negative (Negative) mg/dL Urine Blood Large (3+) H (Negative) Urine Nitrite Negative (Negative) Ur Leukocyte Esterase Negative (Negative) Urine RBC 0-2 (0-2) /HPF Urine WBC 0-5 (0-5) /HPF Ur Squamous Epith Cells >20 (0-2) /HPF Urine Bacteria 4+ (None Seen) Hyaline Casts 0-2 (0-2) /LPF Urine Test NEGATIVE (NEGATIVE) Urine Opiates Screen Not Detected (Not Detect) Ur Buprenorphine Scrn Not Detected (Not Detect) ng/mL Ur Oxycodone Screen Not Detected (Not Detect) ng/mL Urine Methadone Screen Not Detected (Not Detect) ng/mL Urine Fentanyl Screen Not Detected (Not Detect) Ur Barbiturates Screen Not Detected (Not Detect) Ur Phencyclidine Scrn Not Detected (Not Detect) Ur Amphetamines Screen Not Detected (Not Detect) U Benzodiazepines Scrn Not Detected (Not Detect) Urine Cocaine Screen Not Detected (Not Detect) U Marijuana (THC) Screen POSITIVE H (Not Detect) Discharge Plan Discharge Clinical Impression: Acute anxiety, Depression Patient Disposition: Home, Self-Care Instructions: Depression (DC), Anxiety (ED) Additional Instructions: Follow up with your primary care provider. Return to the emergency department immediately if your symptoms worsen or if you develop any dizziness, shortness of breath, difficulty breathing, chest pain, blurry vision, loss of vision, nausea, vomiting, abdominal pain, fever, chills, back pain, or any other complaints. [facility]: [address], [place] [id number] Walk in hours from 10am - 12pm Open from 10am - 12pm [facility] Crisis Services: [address] [place] [address] Walk in hours from 10am - 12pm Open 14/06 Behavioral health Network: [address] [place] [id number] [address] [place] [id number] Hours: M-F 8am to 8pm Wednesday and Wednesday 9am to 5pm Prescriptions: No Action doxycycline hyclate 100 mg tablet 100 mg PO BID Qty: 14 0RF metronidazole [Flagyl] 500 mg tablet 500 mg PO BID Qty: 14 0RF metronidazole 500 mg tablet 500 mg PO BID Qty: 14 0RF nystatin 100,000 unit/gram powder 1 appl topical TID Qty: 30 0RF albuterol sulfate 90 mcg/actuation aerosol powdr breath activated 2 inh inhalation Q4-6H PRN (Reason: shortness of breath or wheezing) Qty: 1 0RF albuterol sulfate 2.5 mg /3 mL (0.083 %) solution for nebulization 2.5 mg inhalation Q4-6H PRN (Reason: shortness of breath or wheezing) Qty: 180 0RF prednisone 20 mg tablet 40 mg PO DAILY 5 Days Qty: 10 0RF albuterol sulfate 90 mcg/actuation HFA aerosol inhaler 2 puff inhalation Q4-6H PRN (Reason: shortness of breath or wheezing) 30 Days Qty: 6.7 0RF Rx Instructions: [facility] has not dispensed this medication since February 2023. Patient stated that she gets the refills every time she seeks medical attention. Referrals: [facility] [Provider Group] (Call to establish and follow up with a primary care provider. If you already have a primary care provider, please follow up with them.) [facility] [Provider Group] [facility] [Provider Group] Interventions: [place]-Suicide Risk Severity Scale Last Done: 05/31/24 23:30 Print Language: American
[2024-06-01] MEDS: LORazepam 1 MG TABLET PO (01:00)
[2024-06-01 01:27] LABS: MANUAL DIFF FLAG NO
[2024-06-01 01:29] LABS: Basophils Percent Auto 0.2 % (0-2); Eosinophils Absolute Auto 0.4 X10*3/uL (0.0-0.4); Eosinophils Percent Auto 4.9 % (0-4); Hemoglobin 13.3 g/dl (12.0-16.0); Imm Gran Abs Auto 0.02 X10*3/uL (0.00-0.03); Imm Gran Pct Auto 0.2 % (0.0-0.4); Lymphocytes Absolute Auto 2.5 X10*3/uL (1.2-4.9); Lymphocytes Percent Auto 28.8 % (20-40); Mean Corpuscular Hemoglobin 31.6 pg (27.0-33.0); Mean Corpuscular Volume 90.3 fL (80.0-98.0); Mean Platelet Volume 11.9 fL (9.4-12.3); Monocytes Absolute Auto 0.7 X10*3/uL (0.1-1.2); Monocytes Percent Auto 8.2 % (2-11); Neutrophils Absolute Auto 4.9 x10*3/uL (2.0-8.3); Neutrophils Percent Auto 57.7 % (45-73); Platelet Count 184 X10*3/uL (160-400); Red Blood Count 4.21 X10*6/uL (4.20-5.50); Red Cell Distribution Width 13.2 % (11.0-16.0); White Blood Count 8.5 X10*3/uL (4.8-10.8)
[2024-06-01 01:31] LABS: Amphetamine Screen Urine Not Detected (Not Detect); Barbiturates, Urine Not Detected (Not Detect); Benzodiazepines Screen Urine Not Detected (Not Detect); Buprenorphine Scr Not Detected (Not Detect); Cannabinoid Screen Urine POSITIVE (Not Detect); Cocaine Screen Urine Not Detected (Not Detect); Fentanyl, urine Not Detected (Not Detect); Methadone Screen, Urine Not Detected (Not Detect); Opiate Screen Urine Not Detected (Not Detect); Oxycodone Screen Urine Not Detected (Not Detect); Phencyclidine Screen Urine Not Detected (Not Detect)
[2024-06-01 01:43] LABS: Alanine Aminotransferase 11 U/L (0-31); Albumin Level 3.7 g/dL (3.5-5.0); Alkaline Phosphatase 50 U/L (39-117); Anion Gap 13 (12-20); Aspartate Amino Transferase 11 U/L (5-31); Bilirubin Total 0.2 mg/dL (0.0-1.0); Blood Urea Nitrogen 14 mg/dL (9-16); Calcium 8.5 mg/dL (8.4-10.2); Carbon Dioxide 24 mmol/L (22-29); Chloride 108 mmol/L (96-108); Creatinine Clr Calc Pharmacy 117.7; Estimated Glomerular Filt Rate > 60; Glucose Random 128 mg/dL (60-115); Potassium 3.6 mmol/L (3.3-5.1); Sodium 141 mmol/L (135-145); Total Protein 5.8 g/dL (6.5-8.0)
[2024-06-01] MEDS: Albuterol Sulfate 90 MCG 8 GM INHALER 2 PUFF INHALE (09:05)
[2024-06-01 10:17] VITALS: BP 118/73; PULSE 78; RESP 18; TEMP 36.4; O2SAT 94
--- NOTE | 2024-06-01 11:10 | MHC.CARE ---
Pt is a 33 y/o, single, [place]guill[place] speaking, female who is previously unknown to the CARE Team.??? Yesterday, pt self-presented to the ED with a complaint of depression, anxiety, and increased life stressors.? Pt has been medically cleared and is being assessed by the CARE Team to determine appropriate treatment recommendations. Pt has a remote hx of inpt hospitalizations as a child, is not currently on any psychiatric medications or MAT for substance use. Past documented hx of anxiety and depression.? Pt has a remote hx of suicidality and substance use but reports being in Recovery for approximately 10 years.?? Pt is alert and oriented x4 and is assessed in her room in the behavioral health pod of the ED.? She is dressed in hospital attire, appears her stated age, and her grooming is unremarkable.? Pt is not initially engaged in the consult, stating, ?I need a psychiatrist, you can?t help me.? Pt reluctantly agrees to engage with CARE Team and states she is here to ?Have my PFMLA paperwork signed.? My Doctor won?t do it and said I need to have a psychiatrist do it.? She reports increased life stressors, her mother 2 years ago due to addiction, her brother who has an addiction, and sister and her child have moved into her home which has been stressful.? She reports her son was recently diagnosed with autism, and that she also has 3 other children she is supporting.? She reports working 45hour work weeks and has been experiencing increased pressure at work.? She reports that all of the aforementioned have produced a great deal of stress and that she needs some time to sort things out and organize all these changes at home which is why she is here to have her PFMLA paperwork signed. Pt was advised that her form could not be signed by anyone in the ED. Pt reports poor sleep and stated she eats ?Too much.?? She denies depression but states that she is ?sad? she reports that she is sad because her brother has an addiction, doesn?t want to stop, she?s worried about him, and stated family members and loved ones have passed from their addictions.? She reports her sister is homeless and has a child and cannot find alf placement because she is working and ?makes too much money.? Pt denies HI, SI, , self-harm and AVH.? Her thought process appears linear, organized, and future oriented.? Pt?s impulse control, insight, judgment, memory, and concentration appear unimpaired. Pt was born in [place] and raised in [place] by both biological parents until her father .? Pt reports 2 brothers and one sister.? Her Mother has .? Pt describes her childhood as ?Troubled.?? She did not graduate high school but obtained her GED.? She reports some college.? Pt has never been and has 4 children.? She reports a family hx of mental illness and substance use on both her maternal and paternal sides.? She denies any knowledge of a family hx of suicide. Pt reports that she recently had an intake at [facility] for a therapist. Pt will be discharged home to await her first appointment with her therapist through [facility].? The [facility] was discussed with pt as a potential resource for pt in the future, she reports that she is aware of the [facility] and has utilized it in the past.? Pt was provided with literature regarding additional community supports she may wish to utilize.? Pt has expressed a desire for additional supports; she has expressed an interest in exploring PHP.? Pt will be referred to both a virtual and in person PHP. LYNNETTE Hou consulted on this case.
--- NOTE | 2024-06-01 11:41 | MHC.CARE ---
Pt referred to [facility] virtual PHP
--- NOTE | 2024-06-01 11:46 | MHC.CARE ---
Ref[place] to [facility] [place]
== END 2024-06-01 10:18 | disposition home or self-care (01) ==
PROVIDERS: Internal Medicine; Emergency Provider Emergency Medicine Emergency Medical Services
DX: F41.9 Anxiety disorder, unspecified (principal); F32.A Depression, unspecified; Z79.899 Other long term (current) drug therapy
CPT/HCPCS: 36415; 80053; 80307; 81001; 81025; 85025; 99284